=== PATIENT | female | born 1955 | race Caucasian/White ===

== ENCOUNTER → 2021-03-01 | Outpatient (CLI) | payer OTHER ==
[~2021-03-01] MED LIST: ASCO500; ASPI81CH PO; ESTER-C 1,0001 EACH PO; HYDACE5 PO; IBUP800 PO; IRON150C; ODORLESS GARL PO; OMEPRAZOLE MAGN20 MG PO; Prinivil10 MG PO; WOMEN MULTIVIT1 EACH PO
[2021-03-01 16:54] LABS: BASOPHILS ABSOLUTE AUTO 0.04 K/mm3 (0.00-0.23); BASOPHILS PERCENT AUTO 1 % (0-2); EOSINOPHILS ABSOLUTE AUTO 0.04 K/mm3 (0.00-0.68); EOSINOPHILS PERCENT AUTO 1 % (0-6); Hemoglobin 13.5 g/dL (11.5-16.0); IMMATURE GRAN ABSOLUTE AUTO 0.04 K/mm3 (0.00-0.10); IMMATURE GRAN PERCENT AUTO 1 % (0-1); LYMPHOCYTES ABSOLUTE AUTO 2.75 K/mm3 (0.84-5.20); LYMPHOCYTES PERCENT AUTO 36 % (21-46); MONOCYTES PERCENT AUTO 5 % (4-13); Mean Corpuscular HGB 31.5 pg (26.0-34.0); Mean Corpuscular HGB Conc 32.9 g/dL (31.5-36.5); Mean Corpuscular Volume 96 fL (80-100); Mean Platelet Volume 11.2 fL (9.1-12.4); NEUTROPHILS PERCENT AUTO 57 % (41-73); Platelet Count 208 K/mm3 (150-400); RDW Coefficient Variation 13.1 % (11.7-14.2); RDW Standard Deviation 45.6 fL (35.1-46.3); Red Blood Cell Count 4.29 M/mm3 (3.80-5.20); White Blood Cell Count 7.67 K/mm3 (4.00-11.30)
[2021-03-01 17:12] LABS: Alanine Aminotransfer (ALT/SGP 19 U/L (12-78); Albumin, Blood 3.8 g/dL (3.4-5.0); Alk Phos 64 U/L (40-126); Anion Gap 10 mmol/L (6-16); Aspartate Aminotrans (AST/SGOT 20 U/L (12-37); Bilirubin, Total 0.2 mg/dL (0.1-1.0); Blood Urea Nitrogen 8 mg/dL (8-24); Bun/Creatinine Ratio 9.9 (12.0-20.0); CO2, Blood 28 mmol/L (21-32); Calcium, Blood 8.9 mg/dL (8.5-10.1); Chloride, Blood 105 mmol/L (98-108); Creatinine, Blood 0.81 mg/dL (0.40-1.00); Globulin, Blood 3.8 g/dL (2.2-4.0); Glomerular Filtration Rate >60 (60-); Glucose, Blood 75 mg/dL (70-99); Potassium, Blood 3.7 mmol/L (3.5-5.5); Sodium, Blood 143 mmol/L (136-145); Thyroid Stimulating Hormone 0.642 uIU/mL (0.360-4.800); Total Protein, Blood 7.6 g/dL (6.4-8.2)
[2021-03-01 17:15] LABS: Troponin I <0.017 ng/mL (0.000-0.040)
== END | disposition home or self-care (01) ==
LOC: LAB SHORT 16:49
PROVIDERS: Physician Assistant
DX: R00.2 Palpitations (principal)
CPT/HCPCS: 80053; 84443; 84484; 85025

== ENCOUNTER 2023-03-06 15:41 | Emergency (ER) | payer OTHER, MEDICARE ==
[~2023-03-06] VITALS: Ht 160 cm; Wt 79.4 kg
[~2023-03-06 15:41] MED LIST changes: +ASCO500 PO; +CENTRUM SILVER1 EAC2 PO; +Calcium Carbon500 MG PO; +IRON18 MG PO; +Inderal40 MG PO; +LISI10 PO; +VITAMIN B-1250 MCG PO; +VITAMIN D310 MC4 PO
[2023-03-06 15:49] VITALS: BP 141/106
== END 2023-03-06 17:51 | disposition home or self-care (01) ==
LOC: ER 15:41
DX: M25.551 Pain in right hip (principal); M54.50 Low back pain, unspecified; I10 Essential (primary) hypertension; Z79.899 Other long term (current) drug therapy; Z79.82 Long term (current) use of aspirin; Z88.2 Allergy status to sulfonamides; Z91.81 History of falling
CPT/HCPCS: 73502; 99283-25

== ENCOUNTER 2023-11-11 13:17 | Emergency (ER) | payer MEDICARE, BC ==
[~2023-11-11] VITALS: Ht 165.1 cm; Wt 72.6 kg
[2023-11-11 13:42] LABS: BASOPHILS ABSOLUTE AUTO 0.04 K/mm3 (0.00-0.23); BASOPHILS PERCENT AUTO 1 % (0-2); EOSINOPHILS ABSOLUTE AUTO 0.09 K/mm3 (0.00-0.68); EOSINOPHILS PERCENT AUTO 1 % (0-6); Hematocrit 43.9 % (33.0-51.0); IMMATURE GRAN ABSOLUTE AUTO 0.02 K/mm3 (0.00-0.10); IMMATURE GRAN PERCENT AUTO 0 % (0-1); LYMPHOCYTES ABSOLUTE AUTO 3.19 K/mm3 (0.84-5.20); LYMPHOCYTES PERCENT AUTO 43 % (21-46); MONOCYTES PERCENT AUTO 7 % (4-13); Mean Corpuscular HGB Conc 31.9 g/dL (31.5-36.5); Mean Corpuscular Volume 97 fL (80-100); Mean Platelet Volume 11.4 fL (9.1-12.4); NEUTROPHILS ABSOLUTE AUTO 3.65 K/mm3 (1.96-9.15); NEUTROPHILS PERCENT AUTO 49 % (41-73); Platelet Count 205 K/mm3 (150-400); RDW Standard Deviation 50.7 fL (35.1-46.3); Red Blood Cell Count 4.51 M/mm3 (3.80-5.20); White Blood Cell Count 7.49 K/mm3 (4.00-11.30)
[2023-11-11 14:00] LABS: Bilirubin, Total 0.2 mg/dL (0.1-1.0); Bun/Creatinine Ratio 14.6 (12.0-20.0); Calcium, Blood 9.1 mg/dL (8.5-10.1); Creatinine, Blood 0.75 mg/dL (0.40-1.00); Potassium, Blood 4.4 mmol/L (3.5-5.5)
[2023-11-11] MEDS ORDERED: Meclizine HCl 25 MG Tab PO ONE (14:30)
[2023-11-11] MEDS ORDERED: NS 1,000 ML IV SCH (14:30)
[2023-11-11] MEDS ORDERED: Ketorolac Tromethamine 15mg Vial IV ONE (14:30)
[2023-11-11] MEDS ORDERED: MECL25 PO (15:29)
[2023-11-11 16:05] VITALS: BP 162/106
== END 2023-11-11 16:07 | disposition home or self-care (01) ==
LOC: ER 13:17
PROVIDERS: Nurse Practitioner
DX: R42 Dizziness and giddiness (principal); R51.9 Headache, unspecified; I10 Essential (primary) hypertension; Z86.73 Personal history of transient ischemic attack (TIA), and cerebral infarction without residual deficits; Z86.79 Personal history of other diseases of the circulatory system; Z88.2 Allergy status to sulfonamides; Z79.899 Other long term (current) drug therapy
CPT/HCPCS: 80053; 85025; 93005; 93010; 96361; 96374; 99285-25; A9270; J1885; J7030

== ENCOUNTER 2024-04-28 10:19 | Inpatient (IN) | payer MEDICARE, BC ==
[~2024-04-28] VITALS: Ht 157.5 cm; Wt 74.4 kg
[~2024-04-28 10:19] MED LIST changes: +Bactrim Ds Tab1 EACH PO; +MECL25 PO
[2024-04-28 10:45] LABS: BASOPHILS ABSOLUTE AUTO 0.03 K/mm3 (0.00-0.23); BASOPHILS PERCENT AUTO 0 % (0-2); EOSINOPHILS ABSOLUTE AUTO 0.07 K/mm3 (0.00-0.68); EOSINOPHILS PERCENT AUTO 1 % (0-6); Hematocrit 43.2 % (33.0-51.0); Hemoglobin 14.4 g/dL (11.5-16.0); IMMATURE GRAN ABSOLUTE AUTO 0.04 K/mm3 (0.00-0.10); IMMATURE GRAN PERCENT AUTO 1 % (0-1); LYMPHOCYTES ABSOLUTE AUTO 2.69 K/mm3 (0.84-5.20); LYMPHOCYTES PERCENT AUTO 31 % (21-46); MONOCYTES ABSOLUTE AUTO 0.57 K/mm3 (0.16-1.47); MONOCYTES PERCENT AUTO 7 % (4-13); Mean Corpuscular HGB 32.2 pg (26.0-34.0); Mean Corpuscular HGB Conc 33.3 g/dL (31.5-36.5); Mean Corpuscular Volume 97 fL (80-100); NEUTROPHILS ABSOLUTE AUTO 5.17 K/mm3 (1.96-9.15); NEUTROPHILS PERCENT AUTO 60 % (41-73); Platelet Count 210 K/mm3 (150-400); RDW Coefficient Variation 13.2 % (11.7-14.2); RDW Standard Deviation 47.4 fL (35.1-46.3); Red Blood Cell Count 4.47 M/mm3 (3.80-5.20); White Blood Cell Count 8.57 K/mm3 (4.00-11.30)
[2024-04-28 11:12] LABS: Albumin, Blood 3.8 g/dL (3.4-5.0); Albumin/Globulin Ratio 0.9 (0.8-1.8); Bilirubin, Total 0.5 mg/dL (0.1-1.0); Calcium, Blood 9.6 mg/dL (8.5-10.1); Creatinine, Blood 0.65 mg/dL (0.40-1.00); Globulin, Blood 4.3 g/dL (2.2-4.0); Potassium, Blood 3.6 mmol/L (3.5-5.5); Total Protein, Blood 8.1 g/dL (6.4-8.2)
[2024-04-28] MEDS ORDERED: Aspir 8181 MG PO (11:55)
[2024-04-28] MEDS ORDERED: Nitroglycerin 1 INCH/GM PKT TOP ONE (12:00)
[2024-04-28 13:07] LABS: Anti-Xa UFH, PHA Monitoring <0.10 IU/mL; International Normalized Ratio 0.99; Prothrombin Time Results 10.6 Sec (9.7-11.5)
[2024-04-28] MEDS ORDERED: Nitroglycerin 0.4 MG SUBL SL PRN (13:20)
[2024-04-28] MEDS ORDERED: FLU VACC TS2024-25(6MOS UP)/PF 45 MCG/0.5 ML SYRINGE IM SCH (13:25)
[2024-04-28] MEDS ORDERED: Heparin Sodium,Porcine/0.5 NS 500 ML IV SCH (13:30)
[2024-04-28] MEDS ORDERED: Atorvastatin 40 MG Tab PO SCH (14:00)
[2024-04-28] MEDS ORDERED: AmLODIPine Besylate 5 MG Tab PO ONE (14:00)
[2024-04-28] MEDS ORDERED: Carvedilol 3.125 MG Tab PO SCH ×2 (14:00)
[2024-04-28] MEDS ORDERED: Metoprolol Tartrate 1 MG/ML 5 ML VIAL IV SCH (16:45)
[2024-04-28] MEDS ORDERED: Metoprolol Succinate 25 MG TABCR PO SCH (17:00)
[2024-04-28] MEDS ORDERED: Ondansetron HCl 2 MG / ML 2ML Vial IV ONE (17:45)
[2024-04-28] MEDS ORDERED: Ondansetron HCl 2 MG / ML 2ML Vial IV PRN (17:50)
[2024-04-28 18:24] VITALS: BP 123/87
--- NOTE | 2024-04-28 18:41 | NUR ---
[facility]UM[facility]ARE PT ARRIVED TO UNIT FROM ED. PT ABLE TO AMBULATE FROM GURNEY TO BED INDEPENDENTLY. PT ALERT AND ORIENTED. PT COMPLAINING OF NAUSEA AND HEADACHE. BP STABLE. HR NSR 70'S. O2 SATS >90% ON RA. PT ORIENTED TO ROOM AND CALL LIGHT. WILL REPORT OFF TO ONCOMING RN
[2024-04-28 20:42] VITALS: BP 156/110
[2024-04-28] MEDS ORDERED: Dose Adjust by Pharmacy XX STA (20:49)
[2024-04-28] MEDS ORDERED: Docusate Sodium 100 MG Cap PO SCH (21:00)
[2024-04-28 21:45] VITALS: BP 172/116
[2024-04-28] MEDS ORDERED: Metoprolol Succinate 25 MG TABCR PO ONE (22:00)
[2024-04-28] MEDS ORDERED: HydrALAZINE HCl 20 MG / ML 1ML Vial IV PRN (22:00)
[2024-04-28 23:00] VITALS: BP 143/100
[2024-04-28 23:30] VITALS: BP 131/97
[2024-04-29] VITALS (10 sets, daily range): BP systolic 133–150; BP diastolic 91–104
[2024-04-29 02:25] LABS: BASOPHILS ABSOLUTE AUTO 0.03 K/mm3 (0.00-0.23); BASOPHILS PERCENT AUTO 0 % (0-2); EOSINOPHILS PERCENT AUTO 0 % (0-6); Hematocrit 41.9 % (33.0-51.0); Hemoglobin 14.2 g/dL (11.5-16.0); IMMATURE GRAN ABSOLUTE AUTO 0.03 K/mm3 (0.00-0.10); IMMATURE GRAN PERCENT AUTO 0 % (0-1); LYMPHOCYTES ABSOLUTE AUTO 1.86 K/mm3 (0.84-5.20); LYMPHOCYTES PERCENT AUTO 18 % (21-46); MONOCYTES ABSOLUTE AUTO 0.49 K/mm3 (0.16-1.47); MONOCYTES PERCENT AUTO 5 % (4-13); Mean Corpuscular HGB 31.7 pg (26.0-34.0); Mean Corpuscular HGB Conc 33.9 g/dL (31.5-36.5); Mean Corpuscular Volume 94 fL (80-100); Mean Platelet Volume 11.1 fL (9.1-12.4); NEUTROPHILS ABSOLUTE AUTO 8.12 K/mm3 (1.96-9.15); NEUTROPHILS PERCENT AUTO 77 % (41-73); Platelet Count 217 K/mm3 (150-400); RDW Coefficient Variation 13.2 % (11.7-14.2); RDW Standard Deviation 45.2 fL (35.1-46.3); Red Blood Cell Count 4.48 M/mm3 (3.80-5.20); White Blood Cell Count 10.53 K/mm3 (4.00-11.30)
[2024-04-29 02:43] LABS: Alanine Aminotransfer (ALT/SGP 25 U/L (12-78); Albumin, Blood 3.5 g/dL (3.4-5.0); Albumin/Globulin Ratio 0.9 (0.8-1.8); Alk Phos 63 U/L (50-136); Anion Gap 12 mmol/L (3-11); Aspartate Aminotrans (AST/SGOT 38 U/L (12-37); Bilirubin, Total 0.5 mg/dL (0.1-1.0); Blood Urea Nitrogen 8 mg/dL (8-24); Bun/Creatinine Ratio 13.3 (12.0-20.0); CHOL/HDL RATIO 1.8; CO2, Blood 24 mmol/L (21-32); Calcium, Blood 9.7 mg/dL (8.5-10.1); Chloride, Blood 105 mmol/L (98-108); Cholesterol 205 mg/dL (50-200); Glomerular Filtration Rate 96 (60-); Glucose, Blood 116 mg/dL (70-99); HDL Cholesterol 112 mg/dL (>39); LDL/HDL RATIO 0.7; Low Density Lipoprotein Chol 80 mg/dL (0-110); Potassium, Blood 4.1 mmol/L (3.5-5.5); Sodium, Blood 137 mmol/L (136-145); Total Protein, Blood 7.5 g/dL (6.4-8.2); Triglycerides 65 mg/dL (30-160); Very Low Density Lipoprot Chol 13 mg/dL (6-32)
[2024-04-29] MEDS ORDERED: Clarify Drug Order XX ONE (03:05)
[2024-04-29] MEDS ORDERED: Pantoprazole Sodium 20 MG Tab PO SCH (06:00)
--- NOTE | 2024-04-29 06:59 | NUR ---
PT VITAL SIGNS STABLE THROUGHOUT SHIFT EXCEPT FOR 1X EPISODE OF HTN, THIS WAS WELL CONTROLLED WITH NEW MED ORDERS AND PRN HYDRALAZINE X1. PT TOLERATING HEPARIN INFUSION WELL NO S/S BLEEDING. PT DID C/O NAUSEA X1 AND WAS GIVEN ZOFRAN FOR THIS WITH GOOD RESULTS. PT DID C/O OF MILD HEADACHE FOR THE SHIFT BUT DECLINED EFFORTS FOR MEDICATIONS FOR THIS D/T TYLENOL CAUSING NAUSEA. PT DOES REPORT HX OF MIGRAINE-LIKE HEADACHES. PT REMAINS AOX4 AND STEADY ON FEET WITH SBA TO BR.
--- NOTE | 2024-04-29 08:39 | NUR ---
NURSING PCU DAYSHIFT: Assumed care of pt at approx 0700. A/O, very pleasant, cooperative w/care. Denies any pain/discomfort at this time. Ambulates independently and requires only minimal assistance for line management. Skin is intact w/no breakdown noted. Tele in place, NSR, HR 80-90's, no c/o CP/jaw pain, no noted edema, SBP 147 prior to a.m. meds. L/S cta t/o, O2 sat upper 90's on RA, denies dyspnea, no noted cough. Abd SNT, BT+, voiding w/o difficulty. PIV x1, hep gtt infusing at 18mls/hr (15u/kg/hr). No s/s of acute distress this a.m. Cardiology at bedside and consent completed for angiogram which is anticipated for mid shift. Pt denies any current needs or questions regarding plan of care. Awaiting rounding from PMD, call light in reach, cont to monitor for any changes.
[2024-04-29] MEDS ORDERED: Metoprolol Succinate 50 MG TABCR PO SCH (09:00)
[2024-04-29] MEDS ORDERED: Lisinopril 20 MG Tab PO SCH (09:00)
[2024-04-29] MEDS ORDERED: Docusate Sodium 100 MG Cap PO PRN (09:25)
[2024-04-29] MEDS ORDERED: Verapamil HCL 2.5 MG/ML 2ML Injection ONE (10:46)
[2024-04-29] MEDS ORDERED: Heparin Sodium 1000 Units/ML 10ML MDV ONE (10:47)
[2024-04-29] MEDS ORDERED: NS 250 ML IV ONE (10:47)
[2024-04-29] MEDS ORDERED: NS 1,000 ML IV ONE ×2 (10:47→11:40)
[2024-04-29] MEDS ORDERED: Nitroglycerin 2 MG/20 ML BTL ONE (10:48)
[2024-04-29] MEDS ORDERED: FentaNYL Citrate 50 MCG/ML 2 ML Injection ONE ×2 (11:39→12:13)
[2024-04-29] MEDS ORDERED: Midazolam HCl 1MG / ML 2ML Vial ONE (11:39)
[2024-04-29] MEDS ORDERED: Ondansetron HCl 2 MG / ML 2ML Vial ONE (11:47)
[2024-04-29] MEDS ORDERED: Aspirin 325 MG Tab ONE (11:54)
--- NOTE | 2024-04-29 13:16 | NUR ---
BEDSIDE REPORT GIVEN TO CHIARA RN. R RADIAL TR BAND AND R GROIN SITE C/D/I SOFT/NONTENDER, NO EVIDENCE OF BLEEDING. VSS ON RA
--- NOTE | 2024-04-29 17:05 | NUR ---
NURSING PCU DAYSHIFT SUMMARY: Pt has done well t/o the shift. To HC at approx 1145 for angiogram, return to room at approx 1300 accompanied by HC staff x2. R radial access w/TR band and wrist board in place, R femoral access w/closure device, both sites stable w/o signs of bleed or hematoma. Sites recovered well, pt currently sitting on edge of bed, mild tenderness to femoral site noted. Seen by taker off hemp fiber and interventionalist post procedure, plan of care discussed. No stents placed, medication management for HTN and cholesterol control, pt and family verbalized understanding. Pt requested to stay til a.m. to ensure full recovery, care team agreeable. Pt denies any current questions/needs. Call light in reach, cont to monitor until rpt is given to NOC RN.
[2024-04-30 00:37] VITALS: BP 147/97
[2024-04-30] MEDS ORDERED: Acetaminophen 325 MG TABLET PO PRN (00:55)
[2024-04-30 03:58] VITALS: BP 133/98
[2024-04-30 04:46] LABS: BASOPHILS ABSOLUTE AUTO 0.03 K/mm3 (0.00-0.23); BASOPHILS PERCENT AUTO 0 % (0-2); EOSINOPHILS ABSOLUTE AUTO 0.02 K/mm3 (0.00-0.68); EOSINOPHILS PERCENT AUTO 0 % (0-6); Hematocrit 40.4 % (33.0-51.0); Hemoglobin 13.6 g/dL (11.5-16.0); IMMATURE GRAN ABSOLUTE AUTO 0.07 K/mm3 (0.00-0.10); IMMATURE GRAN PERCENT AUTO 1 % (0-1); LYMPHOCYTES ABSOLUTE AUTO 3.05 K/mm3 (0.84-5.20); LYMPHOCYTES PERCENT AUTO 24 % (21-46); MONOCYTES ABSOLUTE AUTO 0.97 K/mm3 (0.16-1.47); MONOCYTES PERCENT AUTO 8 % (4-13); Mean Corpuscular HGB 31.5 pg (26.0-34.0); Mean Corpuscular HGB Conc 33.7 g/dL (31.5-36.5); Mean Corpuscular Volume 94 fL (80-100); Mean Platelet Volume 11.4 fL (9.1-12.4); NEUTROPHILS PERCENT AUTO 68 % (41-73); Platelet Count 215 K/mm3 (150-400); RDW Coefficient Variation 13.3 % (11.7-14.2); Red Blood Cell Count 4.32 M/mm3 (3.80-5.20); White Blood Cell Count 12.74 K/mm3 (4.00-11.30)
[2024-04-30 05:22] LABS: Free Thyroxine 1.05 ng/dL (0.70-1.60); Triiodothyronine, Free 1.56 pg/mL (2.18-3.98)
--- NOTE | 2024-04-30 06:53 | NUR ---
PT REMAINED STABLE THROUGHOUT THE SHIFT. VITAL SIGNS WNL. ANGIO ACCESS SITES REMAINED CLOSED, INTACT, AND UNCHANGED FROM BEGINNING OF SHIFT. BOTH SITES RECOVERED WELL. DISTAL CMS INTACT. PT AOX4 AND INDEPENDENT IN ROOM. PT DID C/O HEADACHE AND THAT WAS RESOLVED WITH TYLENOL. NO NAUSEA/VOMITING OR HTN EPISODES.
[2024-04-30 07:25] VITALS: BP 130/94
[2024-04-30] MEDS ORDERED: ASPI81CH PO (09:48)
[2024-04-30] MEDS ORDERED: ATOR40TA PO (09:49)
[2024-04-30] MEDS ORDERED: LISI20 PO (09:49)
[2024-04-30] MEDS ORDERED: METO50ER PO (09:49)
--- NOTE | 2024-04-30 10:50 | NUR ---
MORNING SUMMARY THE PT IS A&OX4, IND IN THE ROOM, CALLS APPROPRAITELY, AND MAKES HER NEEDS KNOWN. THE PT HAS BEEN SR ON TELE, AND BP STABLE. THE PT HAS HAD NO CARDIAC COMPLAINTS. THE PT IS ON RA W/ SP02 >93% AND DENIES SOB. SHE HAD AN ANGIO 04/29 AND HAS RIGHT WRIST AND RIGHT GROIN ACCESS. BOTH SITES W/O HEMATOMA OR BLEEDING. SITES ARE TENDER TO TOUCH. THE PT HAS A CLEAR TEGADERM FOR DRESSINGS. THE PT WILL BE DISCHARGING THIS MORNING. HER IV WAS TAKEN OUT. THE PT'S MEDICATIONS WERE FAXED TO [facility] PER REQUEST. AWAITING FOR THE PT'S BEFORE THIS [employer] INST[employer]ER GOES OVER DISCHARGE PACKET.
== END 2024-04-30 11:12 | disposition home or self-care (01) | DRG 282 ==
LOC: ER 10:19 → PCU 13:18
PROVIDERS: Emergency Medicine; Physician Assistant; ADMIT Internal Medicine
PROC: B2111ZZ Fluoroscopy of Multiple Coronary Arteries using Low Osmolar Contrast (ICD-10-PCS; principal; 2024-04-29)
PROC: 4A023N7 Measurement of Cardiac Sampling and Pressure, Left Heart, Percutaneous Approach (ICD-10-PCS; 2024-04-29)
DX: I21.4 Non-ST elevation (NSTEMI) myocardial infarction (principal); K21.9 Gastro-esophageal reflux disease without esophagitis; K44.9 Diaphragmatic hernia without obstruction or gangrene; G43.909 Migraine, unspecified, not intractable, without status migrainosus; I10 Essential (primary) hypertension; I25.10 Atherosclerotic heart disease of native coronary artery without angina pectoris; Z79.82 Long term (current) use of aspirin; Z79.899 Other long term (current) drug therapy; Z85.3 Personal history of malignant neoplasm of breast; Z90.12 Acquired absence of left breast and nipple; Z87.891 Personal history of nicotine dependence; Z90.49 Acquired absence of other specified parts of digestive tract
CPT/HCPCS: 36415; 71046; 76937; 80053; 80061; 83690; 84439; 84443; 84481; 84484; 85025; 85520; 85610; 85730; 93005; 93010; 93306; 93460; 99152; 99153; 99285-25; A9270; C1760; C1769; C1887; C1894; J0360; J1644; J2250; J2405; J2470; J3010; J7030; J7050; Q9967

== ENCOUNTER 2024-06-03 02:39 | Emergency (ER) | payer MEDICARE, BC ==
[~2024-06-03] VITALS: Ht 160 cm; Wt 72.6 kg
[~2024-06-03 02:39] MED LIST changes: +ATOR40TA PO; +Aspir 8181 MG PO; +LISI20 PO; +METO50ER PO
[2024-06-03] MEDS ORDERED: Ondansetron HCl 2 MG / ML 2ML Vial IV PRN (03:05)
[2024-06-03 03:13] LABS: BASOPHILS ABSOLUTE AUTO 0.04 K/mm3 (0.00-0.23); BASOPHILS PERCENT AUTO 0 % (0-2); EOSINOPHILS ABSOLUTE AUTO 0.09 K/mm3 (0.00-0.68); EOSINOPHILS PERCENT AUTO 1 % (0-6); Hematocrit 42.5 % (33.0-51.0); Hemoglobin 13.7 g/dL (11.5-16.0); IMMATURE GRAN ABSOLUTE AUTO 0.05 K/mm3 (0.00-0.10); IMMATURE GRAN PERCENT AUTO 1 % (0-1); LYMPHOCYTES ABSOLUTE AUTO 4.43 K/mm3 (0.84-5.20); LYMPHOCYTES PERCENT AUTO 41 % (21-46); MONOCYTES ABSOLUTE AUTO 0.67 K/mm3 (0.16-1.47); MONOCYTES PERCENT AUTO 6 % (4-13); Mean Corpuscular HGB 31.1 pg (26.0-34.0); Mean Corpuscular HGB Conc 32.2 g/dL (31.5-36.5); Mean Corpuscular Volume 97 fL (80-100); Mean Platelet Volume 11.1 fL (9.1-12.4); NEUTROPHILS ABSOLUTE AUTO 5.49 K/mm3 (1.96-9.15); NEUTROPHILS PERCENT AUTO 51 % (41-73); Platelet Count 209 K/mm3 (150-400); RDW Coefficient Variation 13.6 % (11.7-14.2); RDW Standard Deviation 48.6 fL (35.1-46.3); White Blood Cell Count 10.77 K/mm3 (4.00-11.30)
[2024-06-03 03:25] LABS: Albumin, Blood 3.9 g/dL (3.4-5.0); Bilirubin, Total 0.2 mg/dL (0.1-1.0); Calcium, Blood 9.4 mg/dL (8.5-10.1); Creatinine, Blood 0.67 mg/dL (0.40-1.00); Globulin, Blood 4.1 g/dL (2.2-4.0); Potassium, Blood 3.8 mmol/L (3.5-5.5)
[2024-06-03] MEDS ORDERED: Mag Hydrox/AL Hydrox/Simeth 30 ML UDC PO ONE (06:05)
[2024-06-03] MEDS ORDERED: ALMACONE SUSPE355 ML PO (06:42)
[2024-06-03 07:00] VITALS: BP 145/103
== END 2024-06-03 07:23 | disposition home or self-care (01) ==
LOC: ER 02:39
PROVIDERS: Emergency Medicine
DX: R07.89 Other chest pain (principal); K44.9 Diaphragmatic hernia without obstruction or gangrene; K21.9 Gastro-esophageal reflux disease without esophagitis; I10 Essential (primary) hypertension; I25.2 Old myocardial infarction; Z85.3 Personal history of malignant neoplasm of breast; Z90.12 Acquired absence of left breast and nipple; Z87.891 Personal history of nicotine dependence; Z79.82 Long term (current) use of aspirin; Z79.899 Other long term (current) drug therapy; Z59.89 Other problems related to housing and economic circumstances
CPT/HCPCS: 71046; 80053; 83690; 83880; 84484; 85025; 93005; 93010; 99285-25

== ENCOUNTER 2024-11-24 23:26 | Emergency (ER) | payer MEDICARE, BC ==
[~2024-11-24] VITALS: Ht 157.5 cm; Wt 72.6 kg
[~2024-11-24 23:26] MED LIST changes: +ALMACONE SUSPE355 ML PO
[2024-11-25 00:02] LABS: Source, Urine Clean Catch
[2024-11-25 00:12] VITALS: BP 153/104
[2024-11-25 00:16] LABS: Bilirubin, Urine Neg (Neg); Glucose Qualitative, Urine Neg (Neg); Ketones, Urine Neg (Neg); Leukocyte Esterase, Urine Neg (Neg); Protein, Urine Neg (Neg); Specific Gravity, Urine 1.010 (1.003-1.022); Urobilinogen, Urine NORM (Normal)
[2024-11-25 00:18] LABS: BASOPHILS ABSOLUTE AUTO 0.06 K/mm3 (0.00-0.23); BASOPHILS PERCENT AUTO 1 % (0-2); Color, Urine Yellow (P-Yellow); EOSINOPHILS ABSOLUTE AUTO 0.10 K/mm3 (0.00-0.68); EOSINOPHILS PERCENT AUTO 1 % (0-6); Hematocrit 38.2 % (33.0-51.0); Hemoglobin 12.3 g/dL (11.5-16.0); IMMATURE GRAN ABSOLUTE AUTO 0.04 K/mm3 (0.00-0.10); IMMATURE GRAN PERCENT AUTO 0 % (0-1); LYMPHOCYTES ABSOLUTE AUTO 4.23 K/mm3 (0.84-5.20); LYMPHOCYTES PERCENT AUTO 45 % (21-46); MONOCYTES ABSOLUTE AUTO 0.66 K/mm3 (0.16-1.47); MONOCYTES PERCENT AUTO 7 % (4-13); Mean Corpuscular HGB Conc 32.2 g/dL (31.5-36.5); Mean Corpuscular Volume 99 fL (80-100); NEUTROPHILS ABSOLUTE AUTO 4.38 K/mm3 (1.96-9.15); NEUTROPHILS PERCENT AUTO 46 % (41-73); NRBC ABSOLUTE 0.00 K/mm3 (0.00-0.02); NRBC Auto 0.0 /100 WBC (0.0-0.2); Platelet Count 187 K/mm3 (150-400); RDW Coefficient Variation 13.3 % (11.7-14.2); RDW Standard Deviation 48.8 fL (35.1-46.3)
[2024-11-25 00:34] LABS: Alanine Aminotransfer (ALT/SGP 29.0 U/L (12-78); Albumin, Blood 3.5 g/dL (3.4-5.0); Albumin/Globulin Ratio 1.0 (0.8-1.8); Anion Gap 7.0 mmol/L (3-11); Aspartate Aminotrans (AST/SGOT 23.0 U/L (12-37); Bilirubin, Total 0.2 mg/dL (0.1-1.0); Blood Urea Nitrogen 12.0 mg/dL (8-24); CO2, Blood 27.0 mmol/L (21-32); Calcium, Blood 8.6 mg/dL (8.5-10.1); Chloride, Blood 108.0 mmol/L (98-108); Creatinine, Blood 0.82 mg/dL (0.40-1.00); Globulin, Blood 3.6 g/dL (2.2-4.0); Glucose, Blood 89.0 mg/dL (70-99); Potassium, Blood 3.8 mmol/L (3.5-5.5); Sodium, Blood 138.0 mmol/L (136-145); Total Protein, Blood 7.1 g/dL (6.4-8.2)
== END 2024-11-25 01:40 | disposition home or self-care (01) ==
LOC: ER 23:26
PROVIDERS: Emergency Medicine
DX: R51.9 Headache, unspecified (principal); R20.2 Paresthesia of skin; K21.9 Gastro-esophageal reflux disease without esophagitis; I10 Essential (primary) hypertension; Z87.891 Personal history of nicotine dependence; Z79.82 Long term (current) use of aspirin
CPT/HCPCS: 70450; 70496; 70498; 80053; 81003; 85025; 93005; 93010; 99284-25; Q9967